=== PATIENT | female | born 1935 | race Caucasian/White ===

== ENCOUNTER 2021-06-12 14:10 | Inpatient (IN) | payer MEDICARE, OTHER ==
[~2021-06-12] VITALS: Ht 157.5 cm; Wt 45.8 kg
--- NOTE | 2021-06-12 14:10 | NUR ---
Dr Estrada at the bedside for MSE.
[2021-06-12] MEDS ORDERED: FENTANYL CITRATE 100 MCG/2 ML AMPUL ONE (14:23)
[2021-06-12] MEDS ORDERED: MULT-213 PO (14:27)
[2021-06-12] MEDS ORDERED: ACET-2154 PO (14:27)
[2021-06-12] MEDS ORDERED: SENN-261 PO (14:27)
[2021-06-12] MEDS ORDERED: FENTANYL CITRATE 100 MCG/2 ML AMPUL IV ONE (14:30)
[2021-06-12 14:39] LABS: HEMATOCRIT 33.2 % (31.2-41.9); MEAN CORPUSCULAR HEMOGLOBIN 28.4 uug (24.7-32.8); PLATELET COUNT (AUTO) 201 K/uL (179-408)
[2021-06-12 14:46] LABS: CREATININE 0.8 mg/dL (0.6-1.3); POTASSIUM 3.9 mmol/L (3.5-5.1)
[2021-06-12] MEDS ORDERED: OLANZAPINE 5 MG TABLET ONE (15:09)
[2021-06-12] MEDS ORDERED: OLANZAPINE 5 MG TABLET PO ONE (15:15)
[2021-06-12] MEDS ORDERED: MORPHINE SULFATE 4 MG/1 ML DISP.SYRIN IV ONE ×2 (15:15→16:15)
[2021-06-12] MEDS ORDERED: MORPHINE SULFATE 4 MG/1 ML DISP.SYRIN ONE ×2 (15:15→16:10)
[2021-06-12] MEDS ORDERED: LIDOCAINE HCL 1% 20 ML VIAL ONE (15:22)
--- NOTE | 2021-06-12 16:00 | NUR ---
Dr Estrada spoke to dr Patrick(Ortho surgeon).
[2021-06-12] MEDS ORDERED: MAGNESIUM HYDROXIDE 30 ML LIQUID UDC PO PRN (16:45)
[2021-06-12] MEDS ORDERED: REMEDY ESSENTIAL ZINC PASTE 113 GM TP PRN (16:45)
[2021-06-12] MEDS ORDERED: ONDANSETRON 4 MG/2 ML VIAL IV PRN (16:45)
[2021-06-12] MEDS ORDERED: ACETAMINOPHEN 325 MG TABLET PO PRN (16:45)
[2021-06-12 17:02] VITALS: BP 131/65
[2021-06-12] MEDS: IV 1/2NS 1000 ML 1,000 ML IV PRN (17:27)
--- NOTE | 2021-06-12 18:28 | NUR ---
Received report from Domenica. Pt was admitted from the emergency room and brought up to [facility] floor around 1700. Pt resides in [facility], admitting for post fall left hip and left wrist pain. Admitting MD spoke with MD Patrick for consultation. Pt is a/o x 1, confused with history of Dementia. Pt is on room air, SpO2 of 95% BP 131/65 HR 89 97.9F temp. Pt has small visible bruise on left hip. ER reported MD straightened displacement of wrist and has a fiberglass cast with vincent wrap. Pt is incontinent, refused to have boswell catheter inserted in ER, refused to allow straight cath completed on floor. IV on right forearm 20g running fluids as MD ordered. Comfort measures provided, call light within reach, bed alarm on. Will continue to monitor.
[2021-06-12 20:00] VITALS: BP 107/69
--- NOTE | 2021-06-12 20:16 | NUR ---
Received patient in bed alert x1.Confused .Oriented patient to place, room and time.On Ra. No s/s of distress noted.Iv on right wrist patent and intact with IVF running at 75cc/hr.Left arm with vincent wrap in place.Denies pain at this time. Safety measures in place. SURVEY PARTY CHIEF Wood seen and examined patient with NO.Call light with in reach. Will continue to monitor.
[2021-06-12] MEDS: MORPHINE SULFATE 2 MG/1 ML DISP.SYRIN IV PRN (22:23)
[2021-06-12 23:02] LABS: ALANINE AMINOTRANSFERASE 19 U/L (14-59); ALKALINE PHOSPHATASE 75 U/L (50-136); ASPARTATE AMINOTRANSFERASE 11 U/L (15-37); BILIRUBIN,DIRECT < 0.1 mg/dL (0.0-0.2); BILIRUBIN,TOTAL 0.1 mg/dL (0.2-1.0); TOTAL PROTEIN, SERUM 6.2 g/dL (6.4-8.2)
[2021-06-13] MEDS ORDERED: QUETIAPINE FUMARATE 25 MG TABLET PO ONE
--- NOTE | 2021-06-13 00:01 | NUR ---
Patient awake and confused , constantly screaming. Unable to redirect .Repositioned patient. Trying to get of bed multiple times.Denies pain or discomfort. Notified N.P Wood with new order received.Bed alarm on. Notified radiology /labs for stat US gall bladder,labs and Rt for STAT EKG.Monitor closely for safety. NPO after midnight.
[2021-06-13 00:08] LABS: *BILIRUBIN,URIN NEGATIVE (NEGATIVE); *BLOOD, URINE NEGATIVE (NEGATIVE); *CLARITY,URINE CLEAR (CLEAR); *COLOR,URINE YELLOW (YELLOW); *KETONES,URINE TRACE (NEGATIVE); *UROBILINOGEN,URINE 0.2 E.U./dl (NORMAL); LEUKOCYTE ESTERASE ,URINE NEGATIVE (NEGATIVE); NITRITE, URINE NEGATIVE (NEGATIVE); PH,URINE 5.5 (5.0-8.0); UGLUCOSE NEGATIVE (NEGATIVE)
[2021-06-13 04:00] VITALS: BP 112/66
[2021-06-13] MEDS: IV 1/2NS 1000 ML 1,000 ML IV PRN ×2 (06:09→19:29)
--- NOTE | 2021-06-13 06:42 | NUR ---
Patient slept well in no acute distress noted. On Ra.IV patent and intact on right wrist with IVF.Incontinent .Pericare rendered. Call light with in reach.Will endorse to oncoming shift.
[2021-06-13 08:12] LABS: HEMATOCRIT 28.8 % (31.2-41.9); MEAN CORPUSCULAR HEMOGLOBIN 28.2 uug (24.7-32.8); PLATELET COUNT (AUTO) 196 K/uL (179-408)
--- NOTE | 2021-06-13 08:12 | NUR ---
Pt is a/ox 1, restless and crying out. Pt is trying to get out of bed, reoriented but pt is unable to comprehend. Bed low and locked, alarm on, side rails up. Comfort measures provided, will closely monitor pt.
[2021-06-13 08:39] LABS: BILIRUBIN,DIRECT 0.1 mg/dL (0.0-0.2); BILIRUBIN,TOTAL 0.4 mg/dL (0.2-1.0); CREATININE 0.8 mg/dL (0.6-1.3); PHOSPHOROUS 4.1 mg/dL (2.5-4.9); POTASSIUM 3.9 mmol/L (3.5-5.1); TOTAL PROTEIN, SERUM 6.2 g/dL (6.4-8.2)
[2021-06-13] MEDS: MULTIVIT, IRON, MIN NO. 8, FA TABLET PO SCH (09:00)
[2021-06-13] MEDS: MORPHINE SULFATE 2 MG/1 ML DISP.SYRIN IV PRN ×2 (11:05→23:17)
[2021-06-13 11:07] VITALS: BP 144/87
--- NOTE | 2021-06-13 15:08 | NUR ---
Obtained telephone consent for ORIF of left hip and ORIF of left wrist from son Mook carney. Also obtained consent for blood transfusion if needed during surgery. Son aware that DNR will be suspended for 24hrs during and after surgery.
[2021-06-13 15:11] VITALS: BP 147/68
--- NOTE | 2021-06-13 15:15 | NUR ---
Surgery scheduled for 730 tomorrow morning 06/14/21 for left hip IM nailing and left wrist ORIF. Pt will be kept NPO
--- NOTE | 2021-06-13 19:30 | NUR ---
Received patient lying in bed. AAOx1. Confused and disoriented. Dishevelled. Redirect and reorientation provided. Needs assessed and attended to. With some signs of pain but denies any pain when asked. Offered pain medication but refused. Midline on right UA intact and patent. IVF infusing. Safety measure initiated and call light within reached. Continue to monitor.
[2021-06-13 20:29] VITALS: BP 138/61
[2021-06-14] VITALS (7 sets, daily range): BP systolic 119–154; BP diastolic 61–83
--- NOTE | 2021-06-14 | NUR ---
SBAR report given and care transferred to MERI Elizabeth.
[2021-06-14] MEDS: MORPHINE SULFATE 2 MG/1 ML DISP.SYRIN IV PRN ×3 (04:48→23:39)
--- NOTE | 2021-06-14 05:16 | NUR ---
Slept intermittently through the night. Pt AO x1, confused. Needs to be reoriented. On room air saturating at 94%. No signs of acute distress. Pt show signs of pain by grasping site, moaning and yellow. Morphine 2mg IV given, effective. Easily arousable. Scheduled surgery at 0730am. ALEXANDRE midline intact and patent. Call lights within reach. Safety measures maintained.
[2021-06-14 06:13] LABS: HEMATOCRIT 25.8 % (31.2-41.9); MEAN CORPUSCULAR HEMOGLOBIN 28.8 uug (24.7-32.8); MEAN CORPUSCULAR VOLUME 85.4 fL (75.5-95.3); PLATELET COUNT (AUTO) 160 K/uL (179-408)
[2021-06-14 06:22] LABS: CREATININE 0.6 mg/dL (0.6-1.3); MAGNESIUM 1.8 mg/dL (1.8-2.4); PHOSPHOROUS 2.8 mg/dL (2.5-4.9); POTASSIUM 3.4 mmol/L (3.5-5.1)
[2021-06-14] MEDS ORDERED: VANCOMYCIN 1000 MG VIAL ONE (06:52)
[2021-06-14] MEDS ORDERED: NEOMY/BACITRAC/POLYMI OINT 28.35 GM TUBE ONE (06:52)
--- NOTE | 2021-06-14 07:01 | NUR ---
Pt sent down with OR nurses for surgery with Dr. Patrick.
[2021-06-14] MEDS ORDERED: HYDROMORPHONE 2 MG/1 ML DISP.SYRIN ONE (07:22)
[2021-06-14] MEDS: MULTIVIT, IRON, MIN NO. 8, FA TABLET PO SCH (08:42)
[2021-06-14] MEDS ORDERED: POTASSIUM CHLORIDE 20 MEQ POWDER PACKET PO ONE (09:15)
[2021-06-14] MEDS ORDERED: DEXAMETHASONE SOD PHOSPHATE 4 MG INJ IV ONE (09:28)
[2021-06-14] MEDS ORDERED: KETOROLAC TROMETHAMINE 30 MG INJ IM ONE (09:28)
[2021-06-14] MEDS ORDERED: CEFAZOLIN 1 G VIAL IM ONE (09:28)
[2021-06-14] MEDS ORDERED: ONDANSETRON 4 MG/2 ML VIAL IV ONE (09:28)
[2021-06-14] MEDS ORDERED: SEVOFLURANE 250 ML BOTTLE IH ONE (09:28)
[2021-06-14] MEDS ORDERED: PROPOFOL 200 MG/20 ML BOTTLE IV ONE (09:28)
[2021-06-14] MEDS ORDERED: LIDOCAINE-MPF 2% 5 ML VIAL IJ ONE (09:28)
[2021-06-14] MEDS ORDERED: hydrALAZINE HCL 20 MG/1 ML VIAL ONE (09:44)
[2021-06-14] MEDS ORDERED: IV D5W-0.45% NS +20 KCL 1,000 ML IV ONE (09:49)
[2021-06-14] MEDS ORDERED: HYDROMORPHONE 1 MG/1 ML DISP.SYRIN ONE (10:16)
[2021-06-14] MEDS ORDERED: HYDROCODONE/APAP 5-325MG TABLET PO PRN (10:30)
[2021-06-14 12:35] LABS: IRON, SERUM 14 ug/dL (50-175)
[2021-06-14] MEDS: IV D5W-0.45% NS +20 KCL 1,000 ML IV PRN (15:28)
[2021-06-14] MEDS: CEFAZOLIN 1 G in IV DEXTROSE 5% 50 ML IV SCH ×2 (15:30→23:39)
[2021-06-14 16:19] LABS: HEMATOCRIT 23.6 % (31.2-41.9)
--- NOTE | 2021-06-14 20:30 | NUR ---
Patient HH reported to Obed Wood NP, 7.7.6. New orders received to start Ferlicit. No active bleeding noted from surgery sites. Splint in place to left wrist with gauze padding, mepilex dressing in place to left hip, clean and intact.
[2021-06-14] MEDS: SOD FERRIC GLUC COMPLX/SUCROSE 125 MG in IV NORMAL SALINE 100 ML IV SCH (21:09)
[2021-06-14] MEDS ORDERED: OLANZAPINE 10 MG VIAL IM ONE (21:45)
--- NOTE | 2021-06-14 21:59 | NUR ---
Patient is severly agitated, attempting to get out of bed, pulling on her lines. Yelling non stop, "help me", "get out of here". Patient noted with facial grimacing, attempted to manage pain with Morphine IV, not successful. Patient is possibly sundowning. Son aware. Obed Wood PROGRAM PROFESSIONAL made aware with orders for ZYprexa 5MG IM, medication administered and effective.
[2021-06-15] VITALS (13 sets, daily range): BP systolic 111–133; BP diastolic 50–66
[2021-06-15] MEDS: MORPHINE SULFATE 2 MG/1 ML DISP.SYRIN IV PRN ×5 (05:42→20:30)
--- NOTE | 2021-06-15 06:15 | NUR ---
Patient slept intermittently, noted to be occasionally restless for short episodes. No further facial grimacing noted while at rest. Sitter at bedside.
[2021-06-15 07:10] LABS: HEMATOCRIT 21.5 % (31.2-41.9); MEAN CORPUSCULAR HEMOGLOBIN 28.8 uug (24.7-32.8); PLATELET COUNT (AUTO) 169 K/uL (179-408)
[2021-06-15 07:21] LABS: CREATININE 0.7 mg/dL (0.6-1.3); MAGNESIUM 1.9 mg/dL (1.8-2.4); POTASSIUM 3.6 mmol/L (3.5-5.1)
--- NOTE | 2021-06-15 07:30 | NUR ---
hemoglobin 7.2 reported to Lucio massey PATIENT SUPPORT PARTNER with no new order at this time, patient is in bed, awake, no distress noted, no sob, resp even nonlabored, skin warm and dry to touch, no active bleeding noted at surgery site, dressing intact, dry and clean.
[2021-06-15] MEDS: MULTIVIT, IRON, MIN NO. 8, FA TABLET PO SCH (08:12)
[2021-06-15] MEDS: IV D5W-0.45% NS +20 KCL 1,000 ML IV PRN (09:13)
[2021-06-15 12:10] LABS: HEMATOCRIT 21.4 % (31.2-41.9)
[2021-06-15] MEDS: SOD FERRIC GLUC COMPLX/SUCROSE 125 MG in IV NORMAL SALINE 100 ML IV SCH (14:02)
--- NOTE | 2021-06-15 14:13 | NUR ---
patient heamoglobin 7.1 reported to REBECCA Bolanos, with order to transfuse 1 unit of PRBC, however patient temperature noted 100.3, called Obed FERNANDEZ, with order to give tylenol as ordered, recheck the temperature, hold the transfusion for now until temperature goes normal. dressing is intact, dry and clean, saturating 94% at 2 liter via nasal canula. no acute distress noted at this time, continue to monitor closely.
--- NOTE | 2021-06-15 14:57 | NUR ---
patient is very anxious,try to calm the patient, patient is moving constantly in the bed, trying to remove the IV line, trying to grab side rails with left arm, removes the sling, offered fluids frequently, kept clean and dry, current vitals are 113/50,pulse 100, respirations 20, temp 99.4, no acute distress noted. Addendum: 06/15/21 at 1630 by MYRNA GUERRA RN, RN let hands fingers are still with moderate swelling, bruised, capillary refill less than 3 seconds,kept elevated, patient removes sling constantly, elevated on pillows, right pedal pulse is strong, capillary refill is less than 3, no distress noted.
[2021-06-15] MEDS ORDERED: NEUTRA PHOS PACKET PO ONE (15:15)
--- NOTE | 2021-06-15 17:01 | NUR ---
called lab and talked to Lucy from [facility] that patient's temp is back to normal, would like to get the blood for transfusion, Per Lucy she is going to call blood bank
--- NOTE | 2021-06-15 17:04 | NUR ---
lab cecille called and said blood will be released at 1830
--- NOTE | 2021-06-15 19:27 | NUR ---
blood is transfusing, no adverse reactions noted, no distress noted, endorsed to next shift nurse accordingly.
--- NOTE | 2021-06-15 21:00 | NUR ---
Blood transfusion completed, no adverse reactions noted. Patient remains generally agitated and attempting to take lines out. Attempting to get out of bed. Frequent visual checks needed.
[2021-06-16] MEDS: MORPHINE SULFATE 2 MG/1 ML DISP.SYRIN IV PRN ×3 (01:53→13:59)
[2021-06-16] MEDS: IV D5W-0.45% NS +20 KCL 1,000 ML IV PRN ×2 (04:08→18:05)
[2021-06-16 04:20] VITALS: BP 120/57
--- NOTE | 2021-06-16 05:27 | NUR ---
Patient continues to be agitated, taking oxygen off and attempting to get out of bed. She is alert to self with incoherent speech. Status post ORIF to left wrist and hip. Left hand is swollen and bruised, Capillary refill is less than 3. Left hip original Mepilex dressing in place. Patient is screaming and restless, thrashing in bed. Noted occasionally to verbalize pain. Morphine provided as ordered and pain relief noted. Right upper arm midline intact and patent. Safety needs attended.
[2021-06-16 06:33] LABS: HEMATOCRIT 23.2 % (31.2-41.9); MEAN CORPUSCULAR HEMOGLOBIN 29.7 uug (24.7-32.8); MEAN CORPUSCULAR VOLUME 87.3 fL (75.5-95.3); PLATELET COUNT (AUTO) 160 K/uL (179-408)
[2021-06-16 07:27] LABS: CARBON DIOXIDE 25 mmol/L (21-32); CHLORIDE 106 mmol/L (98-107); CREATININE 0.5 mg/dL (0.6-1.3); GLUCOSE 110 mg/dL (74-106); MAGNESIUM 1.8 mg/dL (1.8-2.4); PHOSPHOROUS 1.9 mg/dL (2.5-4.9); POTASSIUM 3.8 mmol/L (3.5-5.1); UREA NITROGEN, BLOOD 13 mg/dL (7-18)
--- NOTE | 2021-06-16 08:02 | NUR ---
Awake in bed, confused, agitated and yelling out, oriented to name only. Restraints in place dt removing lines and dressing, pt attempting to remove left wrist dressing. Reoriented prn. Iv intact infusing hydration no ss of infiltration noted. Patient denies pain. Safety measures in place. Call light in reach. Will cont to monitor.
[2021-06-16] MEDS: MULTIVIT, IRON, MIN NO. 8, FA TABLET PO SCH (08:36)
--- NOTE | 2021-06-16 10:25 | NUR ---
responded to bed alarm and found patient sitting at edge of bed agitated states she wants to leave. reoriented prn but she is confused and forgetful. assisted by nurse to put safely back in bed, denies pain. informed skiing instructor massey with order for sitter. charge nurse aware.
[2021-06-16 11:58] VITALS: BP 137/63
--- NOTE | 2021-06-16 12:01 | NUR ---
seen and examined by farida massey with new order for psych consult carried out.
[2021-06-16] MEDS: SOD FERRIC GLUC COMPLX/SUCROSE 125 MG in IV NORMAL SALINE 100 ML IV SCH (13:54)
[2021-06-16 15:03] VITALS: BP 138/58
--- NOTE | 2021-06-16 15:06 | NUR ---
morphine given for pain 09/25 after rehab. no ss of pain at this time. resting comfortably.
[2021-06-16] MEDS ORDERED: NEUTRA PHOS PACKET PO ONE (16:00)
--- NOTE | 2021-06-16 18:12 | NUR ---
sitter at bedside for safety. restraints in place dt removing left wrist dressing/lines. no new skin breakdown noted. needs attended. safety measures in place. cont to monitor.
[2021-06-16] MEDS ORDERED: MIRALAX 17 GM POWD.PACK PO ONE ×2 (19:30→23:15)
[2021-06-16 21:00] VITALS: BP 147/62
--- NOTE | 2021-06-16 22:30 | NUR ---
Pt was seen by psych md Dr. Collins he ordered 0.5mg of haldol po and haldol lmg IM pt was given po dose tolerated well. Checked pt she is sleeping now.
[2021-06-16] MEDS: HALOPERIDOL 0.5 MG TABLET PO SCH (23:29)
--- NOTE | 2021-06-17 00:29 | NUR ---
called pharmacy changed time of medication to 8397 medication was given no signs of adverse reaction from miralax 17 gm. Will continue to monitor.
[2021-06-17 04:00] VITALS: BP 147/50
[2021-06-17] MEDS: MORPHINE SULFATE 2 MG/1 ML DISP.SYRIN IV PRN ×3 (06:05→23:54)
[2021-06-17] MEDS: IV D5W-0.45% NS +20 KCL 1,000 ML IV PRN ×2 (06:35→23:37)
[2021-06-17 06:42] LABS: HEMATOCRIT 21.6 % (31.2-41.9); MEAN CORPUSCULAR HEMOGLOBIN 29.6 uug (24.7-32.8); MEAN CORPUSCULAR VOLUME 86.8 fL (75.5-95.3); PLATELET COUNT (AUTO) 184 K/uL (179-408)
--- NOTE | 2021-06-17 06:52 | NUR ---
Pt was given 2 mg morphine for severe left arm pain pt was crying and moaning afterwards checked pt. Will endorse to am nurse.
--- NOTE | 2021-06-17 07:09 | NUR ---
Am report given to Marky pt is sleeping after given pain medication. No signs of respiratory distress noted.
--- NOTE | 2021-06-17 07:20 | NUR ---
Awakens easily. On 2lpm nc spo2 97% no ss of pain or sob. With restraints dt removing dressing/lines. Iv hydration infusing as ordered. Sitter at bedside for safety. Left compartments soft, cap refill <3s, able to move toes and fingers. Comfortable. Safety measures in place. Kept comfortable. Call light in reach.
--- NOTE | 2021-06-17 07:50 | NUR ---
REBECCA Wood made aware of Hgb 7.4 no order received at this time.
[2021-06-17 08:06] LABS: CARBON DIOXIDE 27 mmol/L (21-32); CHLORIDE 109 mmol/L (98-107); CREATININE 0.5 mg/dL (0.6-1.3); GLUCOSE 107 mg/dL (74-106); MAGNESIUM 1.8 mg/dL (1.8-2.4); PHOSPHOROUS 2.9 mg/dL (2.5-4.9); UREA NITROGEN, BLOOD 7 mg/dL (7-18)
[2021-06-17] MEDS: HALOPERIDOL 0.5 MG TABLET PO SCH ×2 (08:44→20:33)
[2021-06-17] MEDS: MULTIVIT, IRON, MIN NO. 8, FA TABLET PO SCH (08:45)
[2021-06-17] MEDS: RIVASTIGMINE TARTRATE 1.5 MG CAPSULE PO SCH ×2 (08:45→20:33)
[2021-06-17] MEDS ORDERED: FLEET ENEMA 133 ML BOTTLE RC ONE (10:00)
--- NOTE | 2021-06-17 10:11 | NUR ---
titrated o2 to 1 Lpm nc, satting 96%. will cont to monitor.
--- NOTE | 2021-06-17 11:04 | NUR ---
bm moderate amount, specimen sent to lab for ob stool.
[2021-06-17 11:56] VITALS: BP 125/70
[2021-06-17 12:57] LABS: *OCCULT BLOOD STOOL NEGATIVE (NEGATIVE)
[2021-06-17 14:20] LABS: HEMATOCRIT 26.1 % (31.2-41.9)
[2021-06-17] MEDS: SOD FERRIC GLUC COMPLX/SUCROSE 125 MG in IV NORMAL SALINE 100 ML IV SCH (14:27)
[2021-06-17 16:00] VITALS: BP 155/82
--- NOTE | 2021-06-17 18:13 | NUR ---
resting, easily arousable. doing well on 1 lpm o2 sat 97%. no ss of pain or sob. safety measures in place. call light in reach. needs attended.
--- NOTE | 2021-06-17 19:15 | NUR ---
Received patient on bed, awake, alert, oriented x1, confused, not in labored breathing, with Oxygen at 1L via NC. No Signs of pain noted, with ongoing D5 1/2 NS 1L+20mEq KCL at 75 cc/hr. Safety precautions provided, call light placed within reach.
[2021-06-17 20:00] VITALS: BP 154/76
[2021-06-17] MEDS ORDERED: MIRTAZAPINE 15 MG TABLET PO SCH (21:00)
[2021-06-18 04:00] VITALS: BP 160/76
--- NOTE | 2021-06-18 06:12 | NUR ---
Patient slept for 4 hours, easily awaken, with episode of confusion, still with oxygen 1L via NC, not in labored breathing.
[2021-06-18 07:24] LABS: HEMATOCRIT 25.2 % (31.2-41.9); MEAN CORPUSCULAR HEMOGLOBIN 29.3 uug (24.7-32.8); MEAN CORPUSCULAR VOLUME 87.8 fL (75.5-95.3); PLATELET COUNT (AUTO) 208 K/uL (179-408)
[2021-06-18] MEDS: HALOPERIDOL LACTATE 5 MG/1 ML VIAL IM PRN ×2 (07:55→16:14)
[2021-06-18 08:07] LABS: CARBON DIOXIDE 27 mmol/L (21-32); CHLORIDE 106 mmol/L (98-107); CREATININE 0.5 mg/dL (0.6-1.3); GLUCOSE 112 mg/dL (74-106); MAGNESIUM 1.8 mg/dL (1.8-2.4); PHOSPHOROUS 3.3 mg/dL (2.5-4.9); POTASSIUM 3.7 mmol/L (3.5-5.1); UREA NITROGEN, BLOOD 6 mg/dL (7-18)
[2021-06-18] MEDS ORDERED: HALO5VIA9 IM (09:45)
[2021-06-18] MEDS ORDERED: MIRT-93 PO (09:45)
[2021-06-18] MEDS ORDERED: RIVA1.5C13 PO (09:45)
[2021-06-18] MEDS ORDERED: HALO0.5T6 PO (09:45)
[2021-06-18] MEDS ORDERED: FERR325T23 PO (09:45)
[2021-06-18] MEDS ORDERED: HYDR-3972 PO (09:45)
[2021-06-18] MEDS: RIVASTIGMINE TARTRATE 1.5 MG CAPSULE PO SCH (09:49)
[2021-06-18] MEDS: MULTIVIT, IRON, MIN NO. 8, FA TABLET PO SCH (09:50)
[2021-06-18] MEDS: HALOPERIDOL 0.5 MG TABLET PO SCH (09:50)
[2021-06-18] MEDS: MORPHINE SULFATE 2 MG/1 ML DISP.SYRIN IV PRN ×2 (11:27→15:23)
[2021-06-18 11:30] VITALS: BP 127/62
[2021-06-18] MEDS: SOD FERRIC GLUC COMPLX/SUCROSE 125 MG in IV NORMAL SALINE 100 ML IV SCH (13:19)
[2021-06-18 15:19] VITALS: BP 152/73
--- NOTE | 2021-06-18 17:02 | NUR ---
patient transferred to the [facility], with [facility], reproted was given to berverly, MID line removed, ID removed, belongings are sent with patient, patient has dentures were in her mouth, no distress noted, patient is awake, verbally responsive, no sob, respirations even and nonlabored, skin warm and dry to touch, patient was trying to remove her dressing from her left hand, redirected, with only some effectiveness. [facility].
== END 2021-06-18 16:55 | DRG 480 ==
LOC: ER 14:10 → MEDSURG3 16:48
PROVIDERS: ADMIT Nurse Practitioner Family; ATTEND Registered Nurse
PROC: 05H533Z Insertion of Infusion Device into Right Subclavian Vein, Percutaneous Approach (ICD-10-PCS; 2021-06-13)
PROC: B546ZZA Ultrasonography of Right Subclavian Vein, Guidance (ICD-10-PCS; 2021-06-13)
PROC: 0QS706Z Reposition Left Upper Femur with Intramedullary Internal Fixation Device, Open Approach (ICD-10-PCS; principal; 2021-06-14)
PROC: 0PSJ04Z Reposition Left Radius with Internal Fixation Device, Open Approach (ICD-10-PCS; 2021-06-14)
PROC: 30233N1 Transfusion of Nonautologous Red Blood Cells into Peripheral Vein, Percutaneous Approach (ICD-10-PCS; 2021-06-15)
DX: S52.532A Colles' fracture of left radius, initial encounter for closed fracture (principal); S72.035A Nondisplaced midcervical fracture of left femur, initial encounter for closed fracture; E44.1 Mild protein-calorie malnutrition; Z20.822 Contact with and (suspected) exposure to COVID-19; Z66 Do not resuscitate; D50.9 Iron deficiency anemia, unspecified; E78.5 Hyperlipidemia, unspecified; F03.90 Unspecified dementia, unspecified severity, without behavioral disturbance, psychotic disturbance, mood disturbance, and anxiety; F32.A Depression, unspecified; K59.00 Constipation, unspecified; W19.XXXA Unspecified fall, initial encounter; Y93.9 Activity, unspecified; Y92.129 Unspecified place in nursing home as the place of occurrence of the external cause; E88.09 Other disorders of plasma-protein metabolism, not elsewhere classified; I10 Essential (primary) hypertension; M81.0 Age-related osteoporosis without current pathological fracture; F41.9 Anxiety disorder, unspecified; S30.0XXA Contusion of lower back and pelvis, initial encounter; K80.20 Calculus of gallbladder without cholecystitis without obstruction; F43.10 Post-traumatic stress disorder, unspecified
CPT/HCPCS: 36415; 70450; 71045; 72125; 72170; 72192; 73100; 73110; 73502; 73503; 73700; 83550; 83690; 83735; 84100; 85018; 85025; 85610; 86850; 86900; 86901; 86920; 93005; 93307; 97161; A4649; A4663; A6209; C1713; C1758; G0378; J0360; J0690; J1100; J1170; J1630; J1885; J2270; J2358; J2405; J2916; J3010; J3370; J3490; P9016

== ENCOUNTER 2022-03-11 13:00 | Inpatient (IN) | payer MEDICARE, OTHER ==
[~2022-03-11] VITALS: Ht 152.4 cm; Wt 36.3 kg
[~2022-03-11 13:00] MED LIST: ACET-2154 PO; FERR325T23 PO; HALO0.5T6 PO; HALO5VIA9 IM; HYDR-3972 PO; MIRT-93 PO; MULT-213 PO; RIVA1.5C13 PO; SENN-261 PO
[2022-03-11] MEDS ORDERED: NA P133E RC (13:25)
[2022-03-11] MEDS ORDERED: MAGN400O6 PO (13:25)
[2022-03-11] MEDS ORDERED: ONDA4TAB8 PO (13:25)
[2022-03-11] MEDS ORDERED: BISA10SU61 RC (13:25)
[2022-03-11] MEDS ORDERED: HALO0.5T PO (13:25)
[2022-03-11] MEDS ORDERED: MIRT-93 PO (13:25)
[2022-03-11] MEDS ORDERED: FERR325C PO (13:30)
[2022-03-11] MEDS ORDERED: RIVA1.5C3 PO (13:32)
[2022-03-11 13:33] LABS: HEMATOCRIT 36.9 % (31.2-41.9); MEAN CORPUSCULAR HEMOGLOBIN 27.7 uug (24.7-32.8); MEAN CORPUSCULAR VOLUME 83.3 fL (75.5-95.3); PLATELET COUNT (AUTO) 269 K/uL (179-408)
[2022-03-11 13:46] LABS: BILIRUBIN,DIRECT 0.1 mg/dL (0.0-0.2); BILIRUBIN,TOTAL 0.3 mg/dL (0.2-1.0); CREATININE 0.6 mg/dL (0.6-1.3); POTASSIUM 3.7 mmol/L (3.5-5.1); TOTAL PROTEIN, SERUM 6.5 g/dL (6.4-8.2)
[2022-03-11 13:56] LABS: *BILIRUBIN,URIN NEGATIVE (NEGATIVE); *CLARITY,URINE CLEAR (CLEAR); *COLOR,URINE YELLOW (YELLOW); *KETONES,URINE NEGATIVE (NEGATIVE); LEUKOCYTE ESTERASE ,URINE NEGATIVE (NEGATIVE); NITRITE, URINE NEGATIVE (NEGATIVE); PH,URINE 6.5 (5.0-8.0); UGLUCOSE NEGATIVE (NEGATIVE)
[2022-03-11 13:57] LABS: *BLOOD, URINE TRACE (NEGATIVE)
--- NOTE | 2022-03-11 15:00 | NUR ---
Pt arrived BIBA from [facility] with c/o loss of appetite, weakness, failure to thrive and for GT placement. Pt is AOx1, incontinent x2, non-ambulatory. Seen by Dr. Donnelly for MSE.
--- NOTE | 2022-03-11 15:41 | NUR ---
Gave report to [place] RN. Pt will be admitted under the medical care of Dr. Cedric Mcdaniels, Med-Surg level of care, Rm 310.
--- NOTE | 2022-03-11 16:14 | NUR ---
Transported pt to med-surg, rm 310, received by [facility] RN. Pt in stable condition, V/S WNL except for BP = 140/90.
[2022-03-11 16:28] VITALS: BP 129/63
[2022-03-11 19:45] LABS: BACTERIA,URINE FEW /HPF (NONE SEEN); CALCIUM OXALATE CRYSTALS,UR FEW /HPF (NONE SEEN); RBC,URINE 0-3 /HPF (0-3); SQUAMOUS EPITHELIAL CELL,UR FEW /HPF (NONE SEEN); WBC,URINE NONE SEEN /HPF (0-3)
[2022-03-11] MEDS ORDERED: HYDROCODONE/APAP 5-325MG TABLET PO PRN (20:00)
[2022-03-11] MEDS ORDERED: ONDANSETRON ODT 4 MG TAB.RAPDIS SL SCH (20:00)
[2022-03-11] MEDS ORDERED: HALOPERIDOL LACTATE 5 MG/1 ML VIAL IM PRN (20:00)
[2022-03-11] MEDS ORDERED: FLEET ENEMA 133 ML BOTTLE RC PRN (20:00)
[2022-03-11] MEDS ORDERED: BISACODYL 10 MG SUPP.RECT RC PRN (20:00)
[2022-03-11] MEDS ORDERED: REMEDY ESSENTIAL ZINC PASTE 113 GM TP PRN (20:30)
[2022-03-11] MEDS ORDERED: ONDANSETRON 4 MG/2 ML VIAL IV PRN (20:30)
[2022-03-11] MEDS ORDERED: ACETAMINOPHEN 325 MG TABLET PO PRN (20:30)
[2022-03-11 20:36] VITALS: BP 118/70
[2022-03-11] MEDS ORDERED: MIRTAZAPINE 15 MG TABLET PO SCH (21:00)
[2022-03-11] MEDS ORDERED: HALOPERIDOL 0.5 MG TABLET PO SCH (21:00)
[2022-03-11] MEDS: SENNOSIDES 1 TABLET PO SCH (22:01)
[2022-03-11] MEDS: MAGNESIUM HYDROXIDE 30 ML LIQUID UDC PO SCH (22:01)
[2022-03-11] MEDS: HALOPERIDOL 0.5 MG TABLET PO SCH (22:01)
[2022-03-11] MEDS: RIVASTIGMINE TARTRATE 1.5 MG CAPSULE PO SCH (22:02)
[2022-03-11] MEDS: ENOXAPARIN SODIUM 40 MG/0.4 ML DISP.SYRIN SQ SCH (22:03)
[2022-03-12 04:16] VITALS: BP 140/63
[2022-03-12 06:48] LABS: HEMATOCRIT 38.6 % (31.2-41.9); MEAN CORPUSCULAR HEMOGLOBIN 27.7 uug (24.7-32.8); MEAN CORPUSCULAR VOLUME 86.3 fL (75.5-95.3); PLATELET COUNT (AUTO) 232 K/uL (179-408)
[2022-03-12 07:33] LABS: BILIRUBIN,TOTAL 0.4 mg/dL (0.2-1.0); CREATININE 0.6 mg/dL (0.6-1.3); PHOSPHOROUS 3.6 mg/dL (2.5-4.9); POTASSIUM 3.3 mmol/L (3.5-5.1); TOTAL PROTEIN, SERUM 6.4 g/dL (6.4-8.2)
[2022-03-12] MEDS: FERROUS SULFATE 325 MG TABEC PO SCH ×2 (08:12→16:43)
[2022-03-12] MEDS: RIVASTIGMINE TARTRATE 1.5 MG CAPSULE PO SCH ×2 (08:12→20:06)
--- NOTE | 2022-03-12 08:26 | NUR ---
Patient is stable, she is AAOX2 with confusion, she did took some of her Meds mix with apple sauce. She slept for the majority of the night. No respiratory distress observed, she is still resting. Will continue to monitor patient for safety.
[2022-03-12] MEDS ORDERED: RIVASTIGMINE TARTRATE 1.5 MG CAPSULE PO SCH (09:00)
[2022-03-12 09:57] LABS: THYROID STIMULATING HORMONE 3.496 mIU/mL (0.358-3.740)
[2022-03-12] MEDS ORDERED: POTASSIUM CHLORIDE 20 MEQ POWDER PACKET PO ONE (10:00)
[2022-03-12 11:36] VITALS: BP 111/54
[2022-03-12 16:57] VITALS: BP 150/69
[2022-03-12 20:00] VITALS: BP 155/35
[2022-03-12] MEDS: HALOPERIDOL 0.5 MG TABLET PO SCH (20:06)
[2022-03-12] MEDS: MAGNESIUM HYDROXIDE 30 ML LIQUID UDC PO SCH (20:06)
[2022-03-12] MEDS: SENNOSIDES 1 TABLET PO SCH (20:12)
[2022-03-12] MEDS: MIRTAZAPINE 15 MG TABLET PO SCH (20:12)
[2022-03-12] MEDS: ENOXAPARIN SODIUM 40 MG/0.4 ML DISP.SYRIN SQ SCH (20:13)
[2022-03-12] MEDS: IV LACTATED RINGERS SOLUTION 1,000 ML IV PRN (20:49)
[2022-03-13 04:00] VITALS: BP 155/75
[2022-03-13 07:13] LABS: MEAN CORPUSCULAR HEMOGLOBIN 28.2 uug (24.7-32.8); MEAN CORPUSCULAR VOLUME 85.1 fL (75.5-95.3); PLATELET COUNT (AUTO) 223 K/uL (179-408)
[2022-03-13 07:24] LABS: CREATININE 0.7 mg/dL (0.6-1.3); MAGNESIUM 1.9 mg/dL (1.8-2.4); PHOSPHOROUS 2.9 mg/dL (2.5-4.9); POTASSIUM 3.6 mmol/L (3.5-5.1)
[2022-03-13] MEDS: RIVASTIGMINE TARTRATE 1.5 MG CAPSULE PO SCH ×2 (10:29→21:10)
[2022-03-13] MEDS: FERROUS SULFATE 325 MG TABEC PO SCH ×2 (10:29→17:48)
[2022-03-13 11:06] VITALS: BP 115/49
[2022-03-13 15:19] VITALS: BP 129/58
--- NOTE | 2022-03-13 19:20 | NUR ---
SHIFT NOTE RECEIVED REPORT FROM AM NURSE JENNIFER PT IS ALERT AND ORIENTEDX3 NO SIGNS OF RESPIRATORY DISTRESS NOTED. fALL AND SAFETY PRECAUTION MAINTAINED WILL CONTINUE TO MONITOR. Addendum: 03/13/22 at 192 [facility] TAKE MEDICATION CRUSHED WITH APPLESAUCE HAS BILATERAL WRIST RESTRAINTS PREVENT FROM PULLING OUT LINE. Addendum: 03/13/22 at 193 by REG[facility] RN DR HERNANDEZ CALLED ORDER PT NPO AFTER MIDNIGHT Thursday03/14/22 EXCEPT FOR MEDICATION SCHEDULED FOR G TUBE PLACEMENT NEED CONSENT CALLED FAMILY NO ANSWER .
[2022-03-13] MEDS: IV LACTATED RINGERS SOLUTION 1,000 ML IV PRN (19:44)
[2022-03-13 20:00] VITALS: BP 143/73
[2022-03-13] MEDS: HALOPERIDOL 0.5 MG TABLET PO SCH (21:10)
[2022-03-13] MEDS: SENNOSIDES 1 TABLET PO SCH (21:10)
[2022-03-13] MEDS: MIRTAZAPINE 15 MG TABLET PO SCH (21:10)
[2022-03-13] MEDS: MAGNESIUM HYDROXIDE 30 ML LIQUID UDC PO SCH (21:10)
[2022-03-13] MEDS: ENOXAPARIN SODIUM 40 MG/0.4 ML DISP.SYRIN SQ SCH (21:11)
--- NOTE | 2022-03-13 23:00 | NUR ---
1927- The patient is aox1. The patient has a patent IV access on her left arm that is clean, dry, and intact. The patient has fluids running LR at 80ml/hr. The patient has bilateral soft wrist restraints that are assess every two hours due to patient causing harm to herself. The patient is not complaining of pain. Bed at lowest position, wheels lock, two side rails up, bed alarm on. Call light within reach. Will continue to monitor throughout the shift. Tried contacting the son (Mook) for consent due to MD wanting to do a procedure. Son did not cloth picker the phone. Will call back later on to obtain consent. 2100- The patient request for an extra blanket. Item is given to the patient. The patient has no complains of pain. Will continue to monitor throughout the shift. Tried contacting the son(Mook) again in order to obtained consent. Son did not picked up. Will endorse to day RN to obtain consent from the son. 0000-The patient is asleep and has no complains of pain. The patient has no sob. Will continue to monitor throughout the shift.
[2022-03-14 04:00] VITALS: BP 160/74
[2022-03-14] MEDS: IV LACTATED RINGERS SOLUTION 1,000 ML IV PRN (05:25)
[2022-03-14 06:36] LABS: HEMATOCRIT 36.4 % (31.2-41.9); MEAN CORPUSCULAR HEMOGLOBIN 27.8 uug (24.7-32.8); MEAN CORPUSCULAR VOLUME 84.5 fL (75.5-95.3); PLATELET COUNT (AUTO) 225 K/uL (179-408)
[2022-03-14 07:35] LABS: CARBON DIOXIDE 26 mmol/L (21-32); CHLORIDE 103 mmol/L (98-107); CREATININE 0.5 mg/dL (0.6-1.3); GLUCOSE 101 mg/dL (74-106); PHOSPHOROUS 2.7 mg/dL (2.5-4.9); POTASSIUM 3.7 mmol/L (3.5-5.1); UREA NITROGEN, BLOOD 16 mg/dL (7-18)
[2022-03-14] MEDS: RIVASTIGMINE TARTRATE 1.5 MG CAPSULE PO SCH ×3 (09:07→21:00)
[2022-03-14] MEDS: FERROUS SULFATE 325 MG TABEC PO SCH ×2 (09:07→16:50)
[2022-03-14 11:25] VITALS: BP 158/73
[2022-03-14 15:04] VITALS: BP 145/76
--- NOTE | 2022-03-14 17:50 | NUR ---
Pt. has been stable during the shift. Alert and oriented x2 with confusion. No c/o pain. Restrain was renewed. No acute distress noted. Will keep monitoring the patient.
[2022-03-14 20:00] VITALS: BP 165/66
[2022-03-14] MEDS: MIRTAZAPINE 15 MG TABLET PO SCH ×2 (20:58→21:00)
[2022-03-14] MEDS: HALOPERIDOL 0.5 MG TABLET PO SCH ×2 (20:58→21:00)
[2022-03-14] MEDS: MAGNESIUM HYDROXIDE 30 ML LIQUID UDC PO SCH ×2 (20:58→21:00)
[2022-03-14] MEDS: ENOXAPARIN SODIUM 40 MG/0.4 ML DISP.SYRIN SQ SCH ×2 (20:59→21:00)
[2022-03-14] MEDS: SENNOSIDES 1 TABLET PO SCH (21:00)
[2022-03-15] MEDS: IV LACTATED RINGERS SOLUTION 1,000 ML IV PRN ×2 (01:53→15:21)
[2022-03-15 04:00] VITALS: BP 131/82
--- NOTE | 2022-03-15 06:30 | NUR ---
PATIENT SLEPT WELL THROUGHOUT THE NIGHT. ON TELE SR. KEPT NPO ORDERED. VS WNL. BED ALARM ON. CALL LIGHT IN REACH. ALL NEEDS ATTENDED. WILL CONTINUE TO MONITOR AND ASSESS.
[2022-03-15 07:05] LABS: HEMATOCRIT 32.4 % (31.2-41.9); MEAN CORPUSCULAR HEMOGLOBIN 28.2 uug (24.7-32.8); MEAN CORPUSCULAR VOLUME 84.7 fL (75.5-95.3); PLATELET COUNT (AUTO) 214 K/uL (179-408)
[2022-03-15 07:33] LABS: CARBON DIOXIDE 28 mmol/L (21-32); CHLORIDE 106 mmol/L (98-107); CREATININE 0.4 mg/dL (0.6-1.3); GLUCOSE 85 mg/dL (74-106); MAGNESIUM 1.9 mg/dL (1.8-2.4); PHOSPHOROUS 2.9 mg/dL (2.5-4.9); POTASSIUM 3.8 mmol/L (3.5-5.1); UREA NITROGEN, BLOOD 19 mg/dL (7-18)
[2022-03-15] MEDS: RIVASTIGMINE TARTRATE 1.5 MG CAPSULE PO SCH ×2 (08:41→21:00)
[2022-03-15] MEDS: FERROUS SULFATE 325 MG TABEC PO SCH ×2 (08:41→16:23)
[2022-03-15 12:00] VITALS: BP 143/76
[2022-03-15 16:00] VITALS: BP 116/64
--- NOTE | 2022-03-15 17:18 | NUR ---
Pt. has been compliance with the care given. Pt. is on NPO for EGD and called OR and they said they are waiting for Dr. Campos. No acute distress noted. all need attended and met. Will keep monitoring the patient.
[2022-03-15] MEDS ORDERED: PROPOFOL 200 MG/20 ML BOTTLE IV ONE (19:10)
[2022-03-15] MEDS ORDERED: CEFAZOLIN 1 G VIAL IM ONE (19:10)
--- NOTE | 2022-03-15 20:00 | NUR ---
RECEIVED PATIENT FROM RECOVERY S/P INSERTION OF G-TUBE. PATIENT IS ALERT TO SELF, CONFUSED. VS WNL. ON RA SATING WELL. IVF INFUSING WELL TO RIGHT UPPER ARM. CALL LIGHT IN REACH. BED ALARM ON. ALL NEEDS ATTENDED.
[2022-03-15] MEDS: SENNOSIDES 1 TABLET PO SCH (20:28)
[2022-03-15] MEDS: MAGNESIUM HYDROXIDE 30 ML LIQUID UDC PO SCH (20:28)
[2022-03-15 20:49] VITALS: BP 144/84
[2022-03-15] MEDS: MIRTAZAPINE 15 MG TABLET PO SCH (21:00)
[2022-03-15] MEDS: ENOXAPARIN SODIUM 40 MG/0.4 ML DISP.SYRIN SQ SCH (21:00)
[2022-03-15] MEDS: HALOPERIDOL 0.5 MG TABLET PO SCH (21:00)
[2022-03-16 04:40] VITALS: BP 129/67
[2022-03-16] MEDS: IV LACTATED RINGERS SOLUTION 1,000 ML IV PRN ×2 (05:53→23:18)
[2022-03-16 06:57] LABS: HEMATOCRIT 34.2 % (31.2-41.9); MEAN CORPUSCULAR HEMOGLOBIN 27.9 uug (24.7-32.8); MEAN CORPUSCULAR VOLUME 84.4 fL (75.5-95.3); PLATELET COUNT (AUTO) 207 K/uL (179-408)
[2022-03-16 07:20] LABS: CARBON DIOXIDE 24 mmol/L (21-32); CHLORIDE 103 mmol/L (98-107); CREATININE 0.5 mg/dL (0.6-1.3); GLUCOSE 67 mg/dL (74-106); MAGNESIUM 1.7 mg/dL (1.8-2.4); PHOSPHOROUS 3.5 mg/dL (2.5-4.9); POTASSIUM 3.6 mmol/L (3.5-5.1); UREA NITROGEN, BLOOD 15 mg/dL (7-18)
[2022-03-16] MEDS ORDERED: HYDROCODONE/APAP 5-325MG TABLET GT PRN (08:00)
[2022-03-16] MEDS ORDERED: ACETAMINOPHEN 325 MG TABLET GT PRN (08:30)
[2022-03-16] MEDS: FERROUS SULFATE 300 MG/5 ML LIQUID UDC GT SCH ×2 (08:56→20:59)
[2022-03-16] MEDS: RIVASTIGMINE TARTRATE 1.5 MG CAPSULE GT SCH ×2 (08:56→20:57)
[2022-03-16] MEDS ORDERED: JEVITY 1.2 1000 ML LIQUID GT PRN (09:45)
[2022-03-16] MEDS: MAGNESIUM SULFATE/D5W 100 ML IV SCH ×2 (10:18→11:34)
[2022-03-16 12:00] VITALS: BP 115/59
--- NOTE | 2022-03-16 15:05 | NUR ---
soft wrist restraint discontinued, started on both hands mittens, repositioned patient every 2 hours,kept clean and dry. g-tube intact and patent. Addendum: 03/16/22 at 1506 by MYRNA GUERRA RN, RN continue to monitor
[2022-03-16 16:00] VITALS: BP 145/67
--- NOTE | 2022-03-16 18:56 | NUR ---
patient is calm and comfortable,kept clean and dry, repositioned every 2 hours, floated heels on pillows, g-tube intact, clean and dry, with positive placement, no residual noted, increased to 20ml/hr. no distress noted.
[2022-03-16 20:00] VITALS: BP 145/94
[2022-03-16] MEDS ORDERED: MIRTAZAPINE 15 MG TABLET GT SCH (21:00)
[2022-03-16] MEDS ORDERED: SENNOSIDES 1 TABLET GT SCH (21:00)
[2022-03-16] MEDS ORDERED: MAGNESIUM HYDROXIDE 30 ML LIQUID UDC GT SCH (21:00)
[2022-03-16] MEDS ORDERED: HALOPERIDOL 0.5 MG TABLET GT SCH (21:00)
[2022-03-16] MEDS: ENOXAPARIN SODIUM 40 MG/0.4 ML DISP.SYRIN SQ SCH (21:02)
[2022-03-17] VITALS: BP 145/86
[2022-03-17 04:00] VITALS: BP 131/58
--- NOTE | 2022-03-17 06:11 | NUR ---
SHIFT NOTES: PT HAS BILATERAL MITTENS NO SIGNS OF DISTRESS NOTED. ASSSESSED EVERY 2 HOURS MITTEN NO SIGNS OF REDNESS OR SWELLING FROM SITE MEDICATION GIVEN ORDERED NO SIGNS OF ADVERSE REACTION FROM MEDICATION FEEDING RATE INCREASE TO 30 ML/HR AND TUBING FLUSHED ORDERED. PT DAQILY WEIGHT IS 80 POUNDS. PT TURNED ORDERED NO SIGNS OF RESPIRATORY DISTRESS NOTED WILL CONTINUE TO MONITORED FOR FALLS AND SAFETY AND ENDORSED TO AM NURSE.
[2022-03-17 07:56] LABS: HEMATOCRIT 32.7 % (31.2-41.9); MEAN CORPUSCULAR HEMOGLOBIN 28.6 uug (24.7-32.8); MEAN CORPUSCULAR VOLUME 83.1 fL (75.5-95.3); PLATELET COUNT (AUTO) 232 K/uL (179-408)
[2022-03-17 08:15] LABS: CARBON DIOXIDE 28 mmol/L (21-32); CHLORIDE 103 mmol/L (98-107); CREATININE 0.5 mg/dL (0.6-1.3); GLUCOSE 135 mg/dL (74-106); PHOSPHOROUS 2.1 mg/dL (2.5-4.9); POTASSIUM 3.8 mmol/L (3.5-5.1); UREA NITROGEN, BLOOD 13 mg/dL (7-18)
[2022-03-17] MEDS: RIVASTIGMINE TARTRATE 1.5 MG CAPSULE GT SCH (08:57)
[2022-03-17] MEDS: FERROUS SULFATE 300 MG/5 ML LIQUID UDC GT SCH (08:57)
--- NOTE | 2022-03-17 09:00 | NUR ---
RECEIVED PATIENT IN BED AWAKE CONFUSED AND DISORIENTED VERBALLY TALKING BUT IS INCOHERENT AND INAPPROPRIATE SEEMS TO BE HAVING A CONVERSATION BY HER SELF TOTALLY DEPENDENT FOR ALL ADL HER GT FEEDINGS IS AT 30 ML/HR WILL INCREASE ABOUT 1200 TO 35 WHICH IS HER RATE GOAL HAS NO GASTRIC RESIDUAL AT THIS TIME HAS BILATERAL MITTENS TO PREVENT HER FROM PULLING OUT THE GT CHECKED FOR CIRCULATION Q2H REPOSITIONED FOR COMFORT ON ROOM AIR WITH NO SOB ALL NEEDS ANTICIPATED AND SATISFIED.WILL CONTINUE TO OBSERVE.
[2022-03-17 11:50] VITALS: BP 145/79
[2022-03-17] MEDS ORDERED: NEUTRA PHOS PACKET GT ONE (12:00)
[2022-03-17] MEDS ORDERED: RIVA1.5C13 GT (12:06)
[2022-03-17] MEDS ORDERED: ACET325T53 GT (12:06)
[2022-03-17] MEDS ORDERED: HALO0.5T6 GT (12:06)
[2022-03-17] MEDS ORDERED: MIRT-93 GT (12:06)
[2022-03-17] MEDS ORDERED: FERR300L GT (12:06)
[2022-03-17] MEDS ORDERED: LACT-209 GT (12:06)
--- NOTE | 2022-03-17 12:08 | NUR ---
WOUND CARE CONSULT: PT SEEN FOR LEFT FOOT LESION/CALLUS, PRESENT ON ADMISSION. CONCUR WITH CURRENT PROTECTION ORDER (FOAM DRESSING). DISCUSSED SKIN PROTECTION WITH NURSING STAFF. WILL SEE PRN. IN AGREEMENT WITH PLAN OF CARE.
--- NOTE | 2022-03-17 14:05 | NUR ---
CALLED THE [facility] TO GIVE REPORT PATIENT IS BEING DISCHARGED TODAY WAS TRANSFERED TO THE [facility]ICE [facility] AND I LEFT A MESSAGE FOR THEM TO CALL ME BACK FOR REPORT.
--- NOTE | 2022-03-17 15:39 | NUR ---
SECOND CALL TO [facility] SPOKE WITH YUMIKO AND REPORT GIVEN TO HER FOR CONTINUING CARE.
--- NOTE | 2022-03-17 16:00 | NUR ---
PATIENT DISCHARGED PICKED UP BY THE [facility] IN SATISFACTORY CONDITION WITH DISCHARGE PAPERWORK REPORT ALREADY GIVEN TO [facility] PATIENT IS CONFUSED AND DISORIENTED.
== END 2022-03-17 16:00 | DRG 640 ==
LOC: ER 13:00 → MEDSURG3 15:47
PROVIDERS: ADMIT Nurse Practitioner Acute Care; ATTEND Nurse Practitioner Acute Care
PROC: 0DH63UZ Insertion of Feeding Device into Stomach, Percutaneous Approach (ICD-10-PCS; principal; 2022-03-15)
DX: R62.7 Adult failure to thrive (principal); G93.41 Metabolic encephalopathy; Z68.1 Body mass index [BMI] 19.9 or less, adult; E44.0 Moderate protein-calorie malnutrition; R64 Cachexia; E78.5 Hyperlipidemia, unspecified; E88.09 Other disorders of plasma-protein metabolism, not elsewhere classified; F43.10 Post-traumatic stress disorder, unspecified; G89.29 Other chronic pain; R13.10 Dysphagia, unspecified; K59.00 Constipation, unspecified; K29.70 Gastritis, unspecified, without bleeding; D50.9 Iron deficiency anemia, unspecified; F03.90 Unspecified dementia, unspecified severity, without behavioral disturbance, psychotic disturbance, mood disturbance, and anxiety; F41.9 Anxiety disorder, unspecified; I10 Essential (primary) hypertension; R53.1 Weakness; F32.A Depression, unspecified; F29 Unspecified psychosis not due to a substance or known physiological condition; Z20.822 Contact with and (suspected) exposure to COVID-19
CPT/HCPCS: 36415; 43761; 71045; 83550; 83690; 83735; 84100; 84443; 84484; 85025; 85730; 93005; A4663; A6209; A6213; C1758; G0378; J0690; J1650; J3475; J3490; J7120

== ENCOUNTER 2022-05-07 20:26 | Inpatient (IN) | payer MEDICARE, OTHER ==
[~2022-05-07] VITALS: Ht 165.1 cm; Wt 56.7 kg
[~2022-05-07 20:26] MED LIST changes: -ACET-2154 PO; +ACET325T53 GT; +FERR300L GT; -FERR325T23 PO; +HALO0.5T6 GT; -HALO0.5T6 PO; -HALO5VIA9 IM; -HYDR-3972 PO; +LACT-209 GT; +MIRT-93 GT; -MIRT-93 PO; -MULT-213 PO; +RIVA1.5C13 GT; -RIVA1.5C13 PO; -SENN-261 PO
--- NOTE | 2022-05-07 21:23 | NUR ---
Dr. Ruiz did a panel call with REBECCA Pena.
[2022-05-07] MEDS ORDERED: DIATR MEGLU/DIATRIZOATE SODIUM 30 ML BOTTLE ONE (21:28)
[2022-05-07 21:29] LABS: MEAN CORPUSCULAR VOLUME 86.9 fL (75.5-95.3); PLATELET COUNT (AUTO) 229 K/uL (179-408)
[2022-05-07] MEDS ORDERED: ASCO-375 GT (21:31)
[2022-05-07] MEDS ORDERED: BISA10SU61 RC (21:31)
[2022-05-07] MEDS ORDERED: MULT-213 GT (21:31)
[2022-05-07] MEDS ORDERED: MAGN400O6 GT (21:31)
[2022-05-07] MEDS ORDERED: NA P133E RC (21:31)
[2022-05-07] MEDS ORDERED: CHOL400T58 GT (21:31)
[2022-05-07 21:51] LABS: CARBON DIOXIDE 30 mmol/L (21-32); CHLORIDE 105 mmol/L (98-107); CREATININE 0.5 mg/dL (0.6-1.3); GLUCOSE 95 mg/dL (74-106); POTASSIUM 3.7 mmol/L (3.5-5.1); UREA NITROGEN, BLOOD 25 mg/dL (7-18)
[2022-05-07 21:56] LABS: ALANINE AMINOTRANSFERASE 14 U/L (14-59); ALKALINE PHOSPHATASE 75 U/L (50-136); ASPARTATE AMINOTRANSFERASE 12 U/L (15-37); BILIRUBIN,TOTAL 0.4 mg/dL (0.2-1.0); TOTAL PROTEIN, SERUM 6.7 g/dL (6.4-8.2)
[2022-05-07] MEDS ORDERED: CEFTRIAXONE 1 G in IV DEXTROSE 5% 50 ML IV ONE (22:15)
[2022-05-07] MEDS ORDERED: METRONIDAZOLE 500 MG/NS 100ML 100 ML IV ONE ×2 (22:15→22:25)
[2022-05-07] MEDS ORDERED: CEFTRIAXONE /D5W 50ML IVPB **ER PYXIS IV ONE (22:25)
--- NOTE | 2022-05-07 22:58 | NUR ---
Called 3rd fl, patient assigned rm 322.
--- NOTE | 2022-05-08 00:40 | NUR ---
Report given to MERI Huber.
[2022-05-08] MEDS ORDERED: BISACODYL 10 MG SUPP.RECT RC ONE (01:05)
--- NOTE | 2022-05-08 01:20 | NUR ---
Pt. admitted to TELE rm 322, under care of Jean, LOADER HELPER Belongs List completed Will, RN aware of patient's arrival to unit.
--- NOTE | 2022-05-08 01:30 | NUR ---
Admitted patient in tele floor under the care of Jean FERNANDEZ, dx of GT malfunction, gt leaking and not in place according to report, patient awake but with confusion, lower extremities contraction, requires total assist with adl's, sinus rhythm on tele, cont to monitor.
[2022-05-08 01:48] VITALS: BP 123/67
[2022-05-08] MEDS: IV D5/ 0.9% NACL 1,000 ML IV PRN ×2 (01:48→18:26)
[2022-05-08 05:07] VITALS: BP 115/55
--- NOTE | 2022-05-08 07:40 | NUR ---
RECEIVED IN BED AWAKE ALERT TO SELF BUT IS CONFUSED AND DISORIENTED ALL NEEDS ANTICIPATED AND SATISFIED ON ROOM AIR WITH NO SOB TURNED AND REPOSITIONED Q2H FOR COMFORT AND GOOD BODY ALLIGNMENT HAS CONTRACTED LOWER EXTREMITIES.REMAIN NPO WITH IVF IN PROGRESS ORDERED GT SITE REDNESS WITH DRESSING INTACT MADE COMFORTABLE WILL CONTINUE TO OBSERVE.
--- NOTE | 2022-05-08 09:30 | NUR ---
PATIENT PULLRD OUT HER HEPLOCK WHEN ASKED STATED DO NOT KNOW SHE IS AWAKE VERBALLY RESPONDS BUT IS CONFUSED AND DISORIENTED UNABLE TO VERBALISE NEEDS NEW HEPLOCK INSERTED TO HER RIGHT UPPER ARM AND IVF CONTINUES IN PROGRESS ORDERED.
[2022-05-08 11:54] VITALS: BP 112/62
--- NOTE | 2022-05-08 13:28 | NUR ---
WOUND CARE CONSULT: PT PRESENTS WITH CACHEXIA, FOOT WOUNDS, SACRAL INTACT DEEP TISSUE INJURY, SLIGHT REDNESS AROUND CLAMPED G TUBE AND CONTRACTED LOWER EXTREMITIES, ALL PRESENT ON ADMISSION. DR NIÑO CALLED FOR DPM CONSULT. DEFER TO GI MD FOR G TUBE. SKIN TO BE KEPT CLEAN AND DRY. DISCUSSED SKIN PROTECTION WITH NURSING STAFF. MD IN AGREEMENT WITH PLAN OF CARE.
[2022-05-08 15:56] VITALS: BP 149/87
--- NOTE | 2022-05-08 17:34 | NUR ---
PATIENT SEEN BY DR TIGRE RENTERIA WITH NO NEW ORDERS AT THIS TIME.
--- NOTE | 2022-05-08 19:35 | NUR ---
Received patient in bed asleep but arousable, no sob no chest pain, tele monitor sinus rhythm, with episode of crying, states it hurts, will notify MD for pain meds via IV.
[2022-05-08 20:00] VITALS: BP 144/89
[2022-05-09] VITALS (7 sets, daily range): BP systolic 127–179; BP diastolic 68–92
--- NOTE | 2022-05-09 01:00 | NUR ---
Patient awake, no sob no chest pain, patient cries when turn and reposition, kept clean and dry, Dr. Bonner was notify again about patient having abdominal pain, with order. Patient asleep , no complain of pain if patient leave alone, at this time, cont to monitor.
[2022-05-09] MEDS: MORPHINE SULFATE 2 MG/1 ML DISP.SYRIN IVP PRN ×3 (04:32→17:40)
--- NOTE | 2022-05-09 04:50 | NUR ---
Patient has elevate BP complain of abdominal pain, medicated with Morphine 2mg via IV. Patient has no sob no chest pain, no congestion noted, turn and reposition, tx done on GT site, with small drainage noted, kept clean and dry, cont to monitor.
--- NOTE | 2022-05-09 07:27 | NUR ---
bp 169/88 trending down endorse to next shift,
[2022-05-09] MEDS: AMMONIUM LACTATE 12% LOTION 225 GM BOTTLE TP SCH (09:00)
[2022-05-09] MEDS: JEVITY 1.2 1000 ML LIQUID GT SCH ×2 (13:00→17:00)
--- NOTE | 2022-05-09 18:59 | NUR ---
SHIFT NOTE: RECEIVED REPORT FROM AM NURSE WILL PT IS ALERT AND ORIENTED X2 PT WAS GIVEN MORPHINE 2MG IV FOR PAIN 1740 GIVEN LAST DOSE NO SIGNS OF DISTRESS NOTED. DR Romeo HERNANDEZ ORDERED PATIENT TO BE D/C IF ABLE TO TOLERATE FEEDING REASSESSED PATIENT INFORMED DR HERNANDEZ FEEDING IS LEAKING HE SAID TO CALLED DR BATISTA MESSAGE LEFT WITH LESTER PATIENT D/C WILL BE HELD UNTIL PATIENT IS SEEN BY LESTER. WILL ENDORSE TO NIGHT NURSE FALL AND SAFETY MAINTAINED PT HAS NEW IV SITE 20G RIGHT FOREARM WHICH IS INFUSING IV D5NS AT 60ML AND HOUR TOLERATING WELL. WILL ENDORSED TO NIGHT NURSE.
--- NOTE | 2022-05-09 19:53 | NUR ---
Receive pt in bed with D5ns@60cc/hr to RFA. Per Day nurse Pts G_tube is leaking and She reported it to MD. Endorsed to hold the discharge until pt is seen by Dr Torres. Pt appears stable at this time. Will continue pts plan of care.
[2022-05-09] MEDS: FERROUS SULFATE 300 MG/5 ML LIQUID UDC GT SCH (21:00)
[2022-05-09] MEDS: RIVASTIGMINE TARTRATE 1.5 MG CAPSULE GT SCH (21:00)
[2022-05-09] MEDS: MIRTAZAPINE 15 MG TABLET GT SCH (21:00)
[2022-05-10 04:00] VITALS: BP 114/61
[2022-05-10] MEDS: MORPHINE SULFATE 2 MG/1 ML DISP.SYRIN IVP PRN ×2 (04:47→10:18)
[2022-05-10] MEDS: IV D5/ 0.9% NACL 1,000 ML IV PRN (04:53)
--- NOTE | 2022-05-10 07:30 | NUR ---
Pt remains NPO with D5NS infusing to Right Ac @60cc/hr. Pt is confused but cries to pain. Morphine given with effectiveness as pt able to sleep. G-Tube site cleansed with NS and dressed. All safety measures maintained as per hospital policy. Report given to Chacho to continue pts plan of care.
[2022-05-10] MEDS: FERROUS SULFATE 300 MG/5 ML LIQUID UDC GT SCH ×2 (09:00→21:54)
[2022-05-10] MEDS: RIVASTIGMINE TARTRATE 1.5 MG CAPSULE GT SCH ×2 (09:00→21:54)
[2022-05-10] MEDS: AMMONIUM LACTATE 12% LOTION 225 GM BOTTLE TP SCH (09:58)
--- NOTE | 2022-05-10 10:58 | NUR ---
pt remains NPO. GT is leaking. held off feeding and med for now. notified.
[2022-05-10 12:00] VITALS: BP 158/82
[2022-05-10 13:05] LABS: HEMATOCRIT 33.5 % (31.2-41.9); MEAN CORPUSCULAR HEMOGLOBIN 28.3 uug (24.7-32.8); MEAN CORPUSCULAR VOLUME 86.4 fL (75.5-95.3); PLATELET COUNT (AUTO) 270 K/uL (179-408)
[2022-05-10 13:14] LABS: CARBON DIOXIDE 27 mmol/L (21-32); CHLORIDE 112 mmol/L (98-107); CREATININE 0.4 mg/dL (0.6-1.3); GLUCOSE 114 mg/dL (74-106); POTASSIUM 3.4 mmol/L (3.5-5.1); UREA NITROGEN, BLOOD 17 mg/dL (7-18)
[2022-05-10] MEDS ORDERED: JEVITY 1.2 1000 ML LIQUID GT PRN (13:15)
[2022-05-10] MEDS ORDERED: METOCLOPRAMIDE HCL 10 MG/2 ML VIAL IV SCH ×2 (14:00)
[2022-05-10 16:00] VITALS: BP 127/87
[2022-05-10] MEDS ORDERED: PIPERACILLIN SODIUM/TAZOBACTAM 3.375 G in IV DEXTROSE 5% 50 ML IV ONE (17:30)
--- NOTE | 2022-05-10 17:30 | NUR ---
patient was examined by dr catherine MAX. Dr Campos removed g-tube at bedside. assessed patient abdomen is soft, non-tender, and no redness noted. Addendum: 05/10/22 at 1832 by MYRNA GUERRA RN RN patient abdomen is nondistended as well.
--- NOTE | 2022-05-10 17:33 | NUR ---
pt will undergo laparoscopy possible laparotomy per at 1830. surgery team will pickle pumper at 1815. telephone consent obtained from johana goff(son) and placed on the chart. md made aware. Addendum: 05/10/22 at 2003 by SAMUEL BLANDON RN per surgery team. EGD and Peg placement will be done rather than laparoscopy possible laparotomy. surgery team will get consent.
[2022-05-10] MEDS ORDERED: ETOMIDATE 20 MG/10 ML VIAL ONE (18:00)
[2022-05-10] MEDS ORDERED: LIDOCAINE-MPF 2% 5 ML VIAL ONE (18:00)
[2022-05-10] MEDS ORDERED: PROPOFOL 200 MG/20 ML BOTTLE ONE (18:00)
[2022-05-10 20:00] VITALS: BP 132/70
[2022-05-10] MEDS: MIRTAZAPINE 15 MG TABLET GT SCH (21:54)
[2022-05-11] MEDS: PIPERACILLIN SODIUM/TAZOBACTAM 3.375 G in IV DEXTROSE 5% 100 ML IV SCH ×3 (04:43→17:13)
[2022-05-11] MEDS: IV D5/ 0.9% NACL 1,000 ML IV PRN (04:44)
[2022-05-11 06:06] VITALS: BP 121/78
--- NOTE | 2022-05-11 07:50 | NUR ---
Patient had a gastrectomy done yesterday. Patient AAOX2 with confusion. She is frail but very nice. No acute respiratory distress observed. Gtube is patent and was flushed with water and medications administered. Will continue to monitor for safety.
[2022-05-11] MEDS: FERROUS SULFATE 300 MG/5 ML LIQUID UDC GT SCH ×2 (08:33→21:25)
[2022-05-11] MEDS: RIVASTIGMINE TARTRATE 1.5 MG CAPSULE GT SCH ×2 (08:33→21:25)
[2022-05-11] MEDS: AMMONIUM LACTATE 12% LOTION 225 GM BOTTLE TP SCH (08:34)
[2022-05-11] MEDS: JEVITY 1.2 1000 ML LIQUID GT PRN (10:58)
[2022-05-11 12:30] VITALS: BP 170/108
[2022-05-11] MEDS: hydrALAZINE HCL 10 MG TABLET PO PRN (14:12)
[2022-05-11 14:16] VITALS: BP 182/79
--- NOTE | 2022-05-11 14:16 | NUR ---
Noted pt. having high BP 182/97 and HR 79. Reported to Dr. Pena and received the order for Hydralazine. Medication is administered will re-check the BP again and will keep monitoring the patient.
[2022-05-11 14:56] VITALS: BP 145/85
--- NOTE | 2022-05-11 14:56 | NUR ---
BP re-checked after administrating the PRN BP medication (Hydralazine) and noted BP 145/85 HR 72. Will keep monitoring the patient.
[2022-05-11 15:30] VITALS: BP 158/93
[2022-05-11] MEDS ORDERED: POTASSIUM CHLORIDE 20 MEQ POWDER PACKET GT ONE ×2 (19:15→21:30)
[2022-05-11 20:00] VITALS: BP 144/68
[2022-05-11] MEDS: MIRTAZAPINE 15 MG TABLET GT SCH (21:25)
[2022-05-12] MEDS: PIPERACILLIN SODIUM/TAZOBACTAM 3.375 G in IV DEXTROSE 5% 100 ML IV SCH ×2 (03:27→09:01)
[2022-05-12 04:00] VITALS: BP 142/90
--- NOTE | 2022-05-12 06:30 | NUR ---
Patient is still confused but slept for most part of the night. Patient tolerated well medications. IV site is dry, patent as well as GTUBE site is healing very well; no redness, discharge or malodorous. Will continue to monitor patient for safety.
[2022-05-12 06:54] LABS: HEMATOCRIT 31.3 % (31.2-41.9); MEAN CORPUSCULAR HEMOGLOBIN 28.4 uug (24.7-32.8); MEAN CORPUSCULAR VOLUME 85.6 fL (75.5-95.3); PLATELET COUNT (AUTO) 247 K/uL (179-408)
[2022-05-12 07:25] LABS: CARBON DIOXIDE 26 mmol/L (21-32); CHLORIDE 107 mmol/L (98-107); CREATININE 0.5 mg/dL (0.6-1.3); GLUCOSE 154 mg/dL (74-106); MAGNESIUM 1.6 mg/dL (1.8-2.4); PHOSPHOROUS 2.7 mg/dL (2.5-4.9); POTASSIUM 3.6 mmol/L (3.5-5.1); UREA NITROGEN, BLOOD 13 mg/dL (7-18)
[2022-05-12] MEDS: hydrALAZINE HCL 10 MG TABLET PO PRN (07:25)
[2022-05-12] MEDS: FERROUS SULFATE 300 MG/5 ML LIQUID UDC GT SCH (08:23)
[2022-05-12] MEDS: RIVASTIGMINE TARTRATE 1.5 MG CAPSULE GT SCH (08:23)
[2022-05-12] MEDS: AMMONIUM LACTATE 12% LOTION 225 GM BOTTLE TP SCH (08:23)
[2022-05-12] MEDS: JEVITY 1.2 1000 ML LIQUID GT PRN (08:49)
[2022-05-12] MEDS ORDERED: LISI2.5T14 PO (09:14)
[2022-05-12] MEDS ORDERED: MAGNESIUM OXIDE 400 MG TABLET GT ONE (11:00)
[2022-05-12 11:15] VITALS: BP 158/98
--- NOTE | 2022-05-12 12:53 | NUR ---
Pt. discharged to [facility]. IV line removed. Skin assessment done and pictures included in pt. chart. Personal belonging returned to the patient. All necessary document signed. Pt. noted to be stable upon the discharge.
== END 2022-05-12 12:10 | DRG 393 ==
LOC: ER 20:26 → TELE3 23:00 → MEDSURG3 05-09 10:27
PROVIDERS: ADMIT Internal Medicine; ATTEND Nurse Practitioner Acute Care
PROC: 0DH63UZ Insertion of Feeding Device into Stomach, Percutaneous Approach (ICD-10-PCS; principal; 2022-05-10)
DX: K94.23 Gastrostomy malfunction (principal); E43 Unspecified severe protein-calorie malnutrition; G93.41 Metabolic encephalopathy; E44.0 Moderate protein-calorie malnutrition; N17.9 Acute kidney failure, unspecified; L89.892 Pressure ulcer of other site, stage 2; K59.00 Constipation, unspecified; F43.10 Post-traumatic stress disorder, unspecified; L89.92 Pressure ulcer of unspecified site, stage 2; Z74.01 Bed confinement status; G89.29 Other chronic pain; M54.50 Low back pain, unspecified; Z87.19 Personal history of other diseases of the digestive system; R13.10 Dysphagia, unspecified; F03.90 Unspecified dementia, unspecified severity, without behavioral disturbance, psychotic disturbance, mood disturbance, and anxiety; F29 Unspecified psychosis not due to a substance or known physiological condition; D50.9 Iron deficiency anemia, unspecified; F32.A Depression, unspecified; E78.5 Hyperlipidemia, unspecified; R62.7 Adult failure to thrive
CPT/HCPCS: 36415; 43761; 74018; 83605; 83735; 84100; 84484; 85025; 87040; A4663; A6209; A6213; G0378; J0696; J2270; J2543; J2765; J3490; J7040; J7042; J7070; Q9963

== ENCOUNTER 2023-11-25 11:25 | Inpatient (IN) | payer MEDICARE, OTHER ==
[~2023-11-25] VITALS: Ht 142.2 cm; Wt 33.2 kg
[~2023-11-25 11:25] MED LIST changes: +ASCO-375 GT; +BISA10SU61 RC; +CHOL400T58 GT; -HALO0.5T6 GT; +LISI2.5T14 PO; +MAGN400O6 GT; +MULT-213 GT; +NA P133E RC
[2023-11-25 11:51] LABS: BASOPHILS % (AUTO) 0.6 % (0.0-2.0); EOSINOPHILS # (AUTO) 0.1 K/uL (0.0-0.7); EOSINOPHILS % (AUTO) 2.5 % (0.0-7.0); HEMATOCRIT 44.1 % (31.2-41.9); HEMOGLOBIN 14.3 g/dL (10.9-14.3); LYMPHOCYTES # (AUTO) 1.2 K/uL (0.8-4.8); LYMPHOCYTES % (AUTO) 23.3 % (20.5-51.5); MEAN CORPUSCULAR HEMOGLOBIN 28.1 uug (24.7-32.8); MEAN CORPUSCULAR HGB CONC 32 g/dL (32.3-35.6); MEAN CORPUSCULAR VOLUME 86.6 fL (75.5-95.3); MONOCYTES # (AUTO) 0.4 K/uL (0.1-1.30); MONOCYTES % (AUTO) 7.2 % (0.0-11.0); NEUTROPHILS # (AUTO) 3.3 K/uL (1.8-8.9); NEUTROPHILS % (AUTO) 66.4 % (38.5-71.5); PLATELET COUNT (AUTO) 150 K/uL (179-408); RED CELL DISTRIBUTION WIDTH 15.9 % (12.3-17.7)
[2023-11-25 12:00] LABS: DIFFERENTIAL COMMENT 1
[2023-11-25] MEDS ORDERED: [UNRECOGNIZED DRUG - CODE] SL (12:04)
[2023-11-25] MEDS ORDERED: ONDA4TAB5 PO (12:04)
[2023-11-25] MEDS ORDERED: MAGN400O6 PO (12:04)
[2023-11-25 12:11] LABS: *BILIRUBIN,URIN NEGATIVE (NEGATIVE); *BLOOD, URINE 3+ (NEGATIVE); *COLOR,URINE YELLOW (YELLOW); *KETONES,URINE NEGATIVE (NEGATIVE); *PROTEIN,URINE 2+ (NEGATIVE); *UROBILINOGEN,URINE 0.2 E.U./dl (NORMAL); LEUKOCYTE ESTERASE ,URINE 3+ (NEGATIVE); NITRITE, URINE NEGATIVE (NEGATIVE); UGLUCOSE NEGATIVE (NEGATIVE)
[2023-11-25 12:11] LABS: AMMONIA < 10 umol/L (11-32)
[2023-11-25 12:12] LABS: *CLARITY,URINE CLOUDY (CLEAR)
[2023-11-25 12:12] LABS: ETHANOL < 3 MG/DL (0-10)
[2023-11-25 12:13] LABS: BACTERIA,URINE MODERATE /HPF (NONE SEEN); RBC,URINE 80-100 /HPF (0-3); SQUAMOUS EPITHELIAL CELL,UR MODERATE /HPF (NONE SEEN); WBC,URINE 80-100 /HPF (0-3)
[2023-11-25 12:15] LABS: ACETAMINOPHEN < 10.0 ug/mL (10-30); ALANINE AMINOTRANSFERASE 11 U/L (14-59); ALBUMIN 3.2 g/dL (3.4-5.0); ALKALINE PHOSPHATASE 95 U/L (50-136); ASPARTATE AMINOTRANSFERASE 12 U/L (15-37); BILIRUBIN,DIRECT 0.1 mg/dL (0.0-0.2); BILIRUBIN,TOTAL 0.3 mg/dL (0.2-1.0); CARBON DIOXIDE 28 mmol/L (21-32); CHLORIDE 106 mmol/L (98-107); CREATININE 0.7 mg/dL (0.6-1.3); GLUCOSE 90 mg/dL (74-106); POTASSIUM 4.2 mmol/L (3.5-5.1); SODIUM SERUM 139 mmol/L (136-145); TOTAL PROTEIN, SERUM 7.6 g/dL (6.4-8.2); UREA NITROGEN, BLOOD 25 mg/dL (7-18)
[2023-11-25 12:24] LABS: *AMPHETAMINE, URINE NEGATIVE (NEGATIVE); *BARBITURATE, URINE NEGATIVE (NEGATIVE); *BENZODIAZEPINE, URINE NEGATIVE (NEGATIVE); *CANNABINOID, URINE NEGATIVE (NEGATIVE); *COCCAINE, URINE NEGATIVE (NEGATIVE); *OPIATE, URINE POSITIVE (NEGATIVE); *PHENCYCLIDINE SCREEN,URINE NEGATIVE (NEGATIVE); FENTANYL, URINE NEGATIVE (NEGATIVE)
[2023-11-25] MEDS ORDERED: MORPHINE SULFATE 4 MG/1 ML DISP.SYRIN ONE (14:02)
[2023-11-25] MEDS ORDERED: CEFTRIAXONE /D5W 50ML IVPB **ER PYXIS IV ONE (14:02)
[2023-11-25] MEDS ORDERED: ONDANSETRON 4 MG/2 ML VIAL ONE (14:02)
[2023-11-25] MEDS: IV NORMAL SALINE 1000 ML BAG IV ONE (14:03)
[2023-11-25] MEDS: CEFTRIAXONE 1 G in IV DEXTROSE 5% 50 ML IV ONE (14:04)
[2023-11-25] MEDS: MORPHINE SULFATE 4 MG/1 ML DISP.SYRIN IV ONE (14:04)
[2023-11-25] MEDS: ONDANSETRON 4 MG/2 ML VIAL IV ONE (14:04)
[2023-11-25] MEDS ORDERED: REMEDY ESSENTIAL ZINC PASTE 113 GM TP PRN (16:15)
[2023-11-25] MEDS ORDERED: IV NS 1000 ML 1,000 ML IV PRN (16:15)
[2023-11-25] MEDS ORDERED: MAGNESIUM HYDROXIDE 30 ML LIQUID UDC PO PRN (16:15)
[2023-11-25] MEDS ORDERED: ONDANSETRON 4 MG/2 ML VIAL IV PRN (16:15)
[2023-11-25] MEDS: AZITHROMYCIN IV 500 MG in IV DEXTROSE 5% 250 ML IV SCH (18:17)
[2023-11-25] MEDS: IV NS 1000 ML 1,000 ML IV PRN (18:17)
[2023-11-25 20:11] VITALS: BP 119/72; TEMP 98; O2SAT 97
[2023-11-25] MEDS ORDERED: MIRTAZAPINE 15 MG TABLET GT SCH (21:00)
[2023-11-25] MEDS ORDERED: RIVASTIGMINE TARTRATE 1.5 MG CAPSULE GT SCH (21:00)
[2023-11-25] MEDS: RIVASTIGMINE TARTRATE 1.5 MG CAPSULE PO SCH (22:00)
[2023-11-25] MEDS: MIRTAZAPINE 15 MG TABLET PO SCH (22:18)
[2023-11-26 05:51] VITALS: BP 114/77; TEMP 98.6; O2SAT 93
[2023-11-26 07:00] LABS: BASOPHILS % (AUTO) 0.8 % (0.0-2.0); DIFFERENTIAL COMMENT 0; EOSINOPHILS # (AUTO) 0.1 K/uL (0.0-0.7); EOSINOPHILS % (AUTO) 2.6 % (0.0-7.0); HEMATOCRIT 36.1 % (31.2-41.9); MEAN CORPUSCULAR HEMOGLOBIN 28.7 uug (24.7-32.8); MEAN CORPUSCULAR HGB CONC 33 g/dL (32.3-35.6); MEAN CORPUSCULAR VOLUME 85.8 fL (75.5-95.3); MONOCYTES # (AUTO) 0.4 K/uL (0.1-1.30); MONOCYTES % (AUTO) 8.1 % (0.0-11.0); NEUTROPHILS # (AUTO) 3.1 K/uL (1.8-8.9); NEUTROPHILS % (AUTO) 66.5 % (38.5-71.5); PLATELET COUNT (AUTO) 118 K/uL (179-408); RED CELL DISTRIBUTION WIDTH 15.6 % (12.3-17.7); WHITE BLOOD COUNT (AUTO) 4.7 K/uL (3.8-11.8)
[2023-11-26 07:48] LABS: CALCIUM 8.3 mg/dL (8.5-10.1); CARBON DIOXIDE 27 mmol/L (21-32); CHLORIDE 110 mmol/L (98-107); CREATININE 0.5 mg/dL (0.6-1.3); GLUCOSE 72 mg/dL (74-106); MAGNESIUM 1.6 mg/dL (1.8-2.4); PHOSPHOROUS 2.7 mg/dL (2.5-4.9); POTASSIUM 4.1 mmol/L (3.5-5.1); SODIUM SERUM 141 mmol/L (136-145); UREA NITROGEN, BLOOD 16 mg/dL (7-18)
[2023-11-26] MEDS: CHOLECALCIFEROL 1,000 UNIT TABLET PO SCH (08:40)
[2023-11-26] MEDS: ASCORBIC ACID 500 MG TABLET PO SCH (08:40)
[2023-11-26] MEDS: MULTIVITAMINS,THERAPEUTIC TABLET PO SCH (08:40)
[2023-11-26] MEDS: LISINOPRIL 5 MG TABLET PO SCH (08:41)
[2023-11-26] MEDS ORDERED: ASCORBIC ACID 500 MG TABLET GT SCH (09:00)
[2023-11-26] MEDS ORDERED: CHOLECALCIFEROL 1,000 UNIT TABLET GT SCH (09:00)
[2023-11-26] MEDS ORDERED: MULTIVITAMINS,THERAPEUTIC TABLET GT SCH (09:00)
[2023-11-26] MEDS ORDERED: IPRATROPIUM BROMIDE 0.5 MG/2.5 ML NEBU NEB PRN (11:30)
[2023-11-26] MEDS ORDERED: ALBUTEROL SULFATE 2.5 MG/3 ML NEBU NEB PRN (11:30)
[2023-11-26] MEDS: MAGNESIUM OXIDE 400 MG TABLET PO ONE (11:51)
[2023-11-26 11:52] VITALS: BP 121/60; TEMP 98.1; O2SAT 99
[2023-11-26] MEDS: CEFTRIAXONE 1 G in IV DEXTROSE 5% 50 ML IV SCH (14:50)
[2023-11-26] MEDS ORDERED: MORP20SO SL (15:23)
[2023-11-26 15:50] VITALS: BP 103/66; TEMP 97.5; O2SAT 92
[2023-11-26] MEDS: ENSURE WITH FIBER 237 ML LIQUID (CHOCOLATE) PO SCH (17:47)
[2023-11-26 19:00] VITALS: BP 108/62; TEMP 97.9; O2SAT 95
[2023-11-26] MEDS: ACETAMINOPHEN 325 MG TABLET PO PRN (21:25)
[2023-11-27 06:00] VITALS: BP 95/40; TEMP 97.9; O2SAT 95
[2023-11-27 09:52] LABS: BASOPHILS # (AUTO) 0.1 K/UL (0.0-0.2); BASOPHILS % (AUTO) 1.3 % (0.0-2.0); EOSINOPHILS # (AUTO) 0.1 K/uL (0.0-0.7); EOSINOPHILS % (AUTO) 2.5 % (0.0-7.0); HEMATOCRIT 40.3 % (31.2-41.9); HEMOGLOBIN 13.1 g/dL (10.9-14.3); LYMPHOCYTES # (AUTO) 1.4 K/uL (0.8-4.8); LYMPHOCYTES % (AUTO) 25.5 % (20.5-51.5); MEAN CORPUSCULAR HEMOGLOBIN 28.1 uug (24.7-32.8); MEAN CORPUSCULAR HGB CONC 32 g/dL (32.3-35.6); MEAN CORPUSCULAR VOLUME 86.6 fL (75.5-95.3); MONOCYTES # (AUTO) 0.4 K/uL (0.1-1.30); NEUTROPHILS # (AUTO) 3.3 K/uL (1.8-8.9); NEUTROPHILS % (AUTO) 62.7 % (38.5-71.5); PLATELET COUNT (AUTO) 113 K/uL (179-408); RED BLOOD CELL COUNT(AUTO) 4.66 MIL/uL (3.63-4.92); RED CELL DISTRIBUTION WIDTH 16.1 % (12.3-17.7); WHITE BLOOD COUNT (AUTO) 5.3 K/uL (3.8-11.8)
[2023-11-27 09:53] LABS: DIFFERENTIAL COMMENT 1
[2023-11-27 10:29] LABS: CALCIUM 8.8 mg/dL (8.5-10.1); CARBON DIOXIDE 29 mmol/L (21-32); CHLORIDE 109 mmol/L (98-107); CREATININE 0.5 mg/dL (0.6-1.3); GLUCOSE 79 mg/dL (74-106); POTASSIUM 3.9 mmol/L (3.5-5.1); SODIUM SERUM 143 mmol/L (136-145); UREA NITROGEN, BLOOD 11 mg/dL (7-18)
[2023-11-27 12:04] VITALS: BP 120/48; TEMP 97.8; O2SAT 95
[2023-11-27 15:56] VITALS: BP 159/88; TEMP 97.9; O2SAT 93
[2023-11-27 16:00] VITALS: BP 163/71; TEMP 98.1; O2SAT 95
[2023-11-27 19:00] VITALS: BP 149/72; TEMP 98.1; O2SAT 95
[2023-11-27] MEDS: MIRTAZAPINE 15 MG TABLET PO SCH (21:25)
[2023-11-28] MEDS: OLANZAPINE 10 MG VIAL IM ONE (03:28)
[2023-11-28 06:00] VITALS: BP 159/84; TEMP 98.1; O2SAT 94
[2023-11-28 07:37] LABS: BASOPHILS % (AUTO) 0.7 % (0.0-2.0); EOSINOPHILS # (AUTO) 0.2 K/uL (0.0-0.7); HEMATOCRIT 37.5 % (31.2-41.9); HEMOGLOBIN 12.5 g/dL (10.9-14.3); LYMPHOCYTES # (AUTO) 1.1 K/uL (0.8-4.8); LYMPHOCYTES % (AUTO) 21.4 % (20.5-51.5); MEAN CORPUSCULAR HEMOGLOBIN 28.3 uug (24.7-32.8); MEAN CORPUSCULAR HGB CONC 33 g/dL (32.3-35.6); MEAN CORPUSCULAR VOLUME 84.9 fL (75.5-95.3); MONOCYTES # (AUTO) 0.3 K/uL (0.1-1.30); MONOCYTES % (AUTO) 6.3 % (0.0-11.0); NEUTROPHILS # (AUTO) 3.5 K/uL (1.8-8.9); NEUTROPHILS % (AUTO) 68.6 % (38.5-71.5); PLATELET COUNT (AUTO) 126 K/uL (179-408); RED BLOOD CELL COUNT(AUTO) 4.42 MIL/uL (3.63-4.92); RED CELL DISTRIBUTION WIDTH 15.7 % (12.3-17.7)
[2023-11-28 07:45] LABS: DIFFERENTIAL COMMENT 1
[2023-11-28 07:49] LABS: CALCIUM 8.6 mg/dL (8.5-10.1); CARBON DIOXIDE 24 mmol/L (21-32); CHLORIDE 111 mmol/L (98-107); CREATININE 0.5 mg/dL (0.6-1.3); GLUCOSE 109 mg/dL (74-106); POTASSIUM 3.4 mmol/L (3.5-5.1); SODIUM SERUM 144 mmol/L (136-145); UREA NITROGEN, BLOOD 12 mg/dL (7-18)
[2023-11-28] MEDS: MIRALAX 17 GM POWD.PACK PO SCH (08:20)
[2023-11-28] MEDS: QUETIAPINE FUMARATE 25 MG TABLET PO SCH (09:24)
[2023-11-28] MEDS: POTASSIUM CHLORIDE 20 MEQ POWDER PACKET GT ONE (10:12)
[2023-11-28 11:38] VITALS: BP 132/58; TEMP 98.1; O2SAT 92
[2023-11-28 16:00] VITALS: BP 127/83; TEMP 97.9; O2SAT 93
[2023-11-28] MEDS: CEFEPIME HCL 1 G in IV DEXTROSE 5% 50 ML IV SCH (17:41)
[2023-11-28 19:00] VITALS: BP 116/72; TEMP 98.1; O2SAT 95
[2023-11-29 06:00] VITALS: BP 152/83; TEMP 97.8; O2SAT 95
[2023-11-29 06:20] LABS: CALCIUM 8.6 mg/dL (8.5-10.1); CARBON DIOXIDE 26 mmol/L (21-32); CHLORIDE 111 mmol/L (98-107); CREATININE 0.6 mg/dL (0.6-1.3); GLUCOSE 118 mg/dL (74-106); POTASSIUM 3.7 mmol/L (3.5-5.1); SODIUM SERUM 145 mmol/L (136-145); UREA NITROGEN, BLOOD 37 mg/dL (7-18)
[2023-11-29 06:20] LABS: BASOPHILS % (AUTO) 0.1 % (0.0-2.0); EOSINOPHILS % (AUTO) 0.5 % (0.0-7.0); HEMATOCRIT 36.8 % (31.2-41.9); HEMOGLOBIN 12.1 g/dL (10.9-14.3); LYMPHOCYTES # (AUTO) 0.8 K/uL (0.8-4.8); LYMPHOCYTES % (AUTO) 9.8 % (20.5-51.5); MEAN CORPUSCULAR HEMOGLOBIN 28.1 uug (24.7-32.8); MEAN CORPUSCULAR HGB CONC 33 g/dL (32.3-35.6); MEAN CORPUSCULAR VOLUME 85.2 fL (75.5-95.3); MONOCYTES # (AUTO) 0.5 K/uL (0.1-1.30); MONOCYTES % (AUTO) 6.3 % (0.0-11.0); NEUTROPHILS # (AUTO) 6.4 K/uL (1.8-8.9); NEUTROPHILS % (AUTO) 83.3 % (38.5-71.5); PLATELET COUNT (AUTO) 132 K/uL (179-408); RED BLOOD CELL COUNT(AUTO) 4.32 MIL/uL (3.63-4.92); RED CELL DISTRIBUTION WIDTH 15.6 % (12.3-17.7); WHITE BLOOD COUNT (AUTO) 7.7 K/uL (3.8-11.8)
[2023-11-29 06:45] LABS: DIFFERENTIAL COMMENT 1
[2023-11-29 11:32] VITALS: BP 130/72; TEMP 98.2; O2SAT 86; O2SAT 96
[2023-11-29] MEDS: IV D5/ 0.9% NACL 1,000 ML IV PRN (14:49)
[2023-11-29 16:20] VITALS: BP 112/62; TEMP 98; O2SAT 97
[2023-11-29 20:00] VITALS: BP 117/64; TEMP 98.1; O2SAT 95
[2023-11-29] MEDS: MIRTAZAPINE 15 MG TABLET PO SCH (20:42)
[2023-11-29] MEDS ORDERED: TRAMADOL HCL 50 MG TABLET PO SCH (22:00)
[2023-11-30] MEDS: TRAMADOL HCL 50 MG TABLET PO PRN (00:51)
[2023-11-30 06:00] VITALS: BP 137/56; TEMP 98.1; O2SAT 92
[2023-11-30 07:06] LABS: CALCIUM 7.7 mg/dL (8.5-10.1); CARBON DIOXIDE 24 mmol/L (21-32); CHLORIDE 114 mmol/L (98-107); CREATININE 0.5 mg/dL (0.6-1.3); GLUCOSE 125 mg/dL (74-106); POTASSIUM 3.4 mmol/L (3.5-5.1); SODIUM SERUM 147 mmol/L (136-145); UREA NITROGEN, BLOOD 26 mg/dL (7-18)
[2023-11-30 07:08] LABS: BASOPHILS % (AUTO) 0.3 % (0.0-2.0); DIFFERENTIAL COMMENT 0; EOSINOPHILS # (AUTO) 0.1 K/uL (0.0-0.7); EOSINOPHILS % (AUTO) 1.2 % (0.0-7.0); HEMATOCRIT 27.2 % (31.2-41.9); HEMOGLOBIN 9.4 g/dL (10.9-14.3); MEAN CORPUSCULAR HEMOGLOBIN 29.3 uug (24.7-32.8); MEAN CORPUSCULAR HGB CONC 34 g/dL (32.3-35.6); MEAN CORPUSCULAR VOLUME 85.2 fL (75.5-95.3); MONOCYTES # (AUTO) 0.3 K/uL (0.1-1.30); NEUTROPHILS # (AUTO) 4.2 K/uL (1.8-8.9); NEUTROPHILS % (AUTO) 74.5 % (38.5-71.5); PLATELET COUNT (AUTO) 99 K/uL (179-408); RED CELL DISTRIBUTION WIDTH 15.6 % (12.3-17.7); WHITE BLOOD COUNT (AUTO) 5.6 K/uL (3.8-11.8)
[2023-11-30] MEDS ORDERED: ASCO500T21 PO (09:57)
[2023-11-30] MEDS ORDERED: CEFE1PIG3 IV (09:57)
[2023-11-30] MEDS ORDERED: MIRT-93 PO (09:57)
[2023-11-30] MEDS ORDERED: POLY17PO4 PO (09:57)
[2023-11-30] MEDS ORDERED: MAGN400O6 PO (09:57)
[2023-11-30] MEDS ORDERED: Lactose-Free Food/Fiber PO (09:57)
[2023-11-30] MEDS ORDERED: QUET25TA36 PO (09:57)
[2023-11-30] MEDS ORDERED: MULT-24 PO (09:57)
[2023-11-30] MEDS: POTASSIUM CHLORIDE 20 MEQ POWDER PACKET PO ONE (10:01)
[2023-11-30 11:30] VITALS: BP 106/61; TEMP 98.2; O2SAT 95
[2023-11-30] MEDS: NEOMY/BACITRAC/POLYMI OINT 28.35 GM TUBE TOP SCH (12:54)
[2023-11-30 15:58] VITALS: BP_SYST 129; BP_SYST 135; BP_DIAS 63; BP_DIAS 72; TEMP 97.7; O2SAT 100; O2SAT 98
== END 2023-11-30 19:10 | DRG 177 ==
LOC: ER 11:25 → MEDSURG3 17:14
PROVIDERS: ADMIT Nurse Practitioner Acute Care; ATTEND Nurse Practitioner Acute Care
DX: J69.0 Pneumonitis due to inhalation of food and vomit (principal); E43 Unspecified severe protein-calorie malnutrition; G93.41 Metabolic encephalopathy; N39.0 Urinary tract infection, site not specified; R64 Cachexia; Z68.1 Body mass index [BMI] 19.9 or less, adult; L97.821 Non-pressure chronic ulcer of other part of left lower leg limited to breakdown of skin; L97.811 Non-pressure chronic ulcer of other part of right lower leg limited to breakdown of skin; F03.94 Unspecified dementia, unspecified severity, with anxiety; F03.93 Unspecified dementia, unspecified severity, with mood disturbance; J15.9 Unspecified bacterial pneumonia; R62.7 Adult failure to thrive; Y95 Nosocomial condition; Z66 Do not resuscitate; Z79.899 Other long term (current) drug therapy; R13.10 Dysphagia, unspecified; I70.0 Atherosclerosis of aorta; F43.10 Post-traumatic stress disorder, unspecified; E78.5 Hyperlipidemia, unspecified; K21.9 Gastro-esophageal reflux disease without esophagitis
CPT/HCPCS: 36415; 70450; 71045; 83605; 83735; 84100; 84484; 85025; 85730; 87040; A4606; A4663; A6209; A6213; G0378; G0480; J0456; J0692; J0696; J2270; J2358; J2405; J7040; J7042; J7050; J7070